=== PATIENT | male | born 1950 | race Asian ===

== ENCOUNTER 2024-01-13 06:20 | Day surgery (SDC) | payer OTHER, SELFPAY ==
[2024-01-13 10:09] VITALS: BMI 24.9
[2024-01-13 10:11] VITALS: BMI 24.9
[2024-01-13 10:12] VITALS: BP 146/90
[2024-01-13 10:26] LABS: Glucose - Point of Care 149 mg/dl (70-99)
[2024-01-13 12:35] VITALS: BP 116/83
[2024-01-13 12:40] VITALS: BP 129/88
[2024-01-13 12:46] LABS: Glucose - Point of Care 161 mg/dl (70-99)
[2024-01-13 12:55] VITALS: BP 123/88
== END 2024-01-13 12:58 | disposition home or self-care (01) ==
LOC: GI 06:20
PROVIDERS: ATTENDING PHYSICIAN Internal Medicine Gastroenterology
DX: K86.2 Cyst of pancreas (principal); R93.5 Abnormal findings on diagnostic imaging of other abdominal regions, including retroperitoneum
CPT/HCPCS: 43238; 88173; 82962